=== PATIENT | male | born 1945 | race Caucasian/White ===

== ENCOUNTER 2019-03-16 18:16 | Emergency (ER) | payer OTHER ==
[2019-03-16 18:31] VITALS: BMI 29.1
--- NOTE | 2019-03-16 19:46 | PDOC ---
History of Present Illness - General Chief Complaint: Injury Stated Complaint: FALL Time Seen by Provider: 03/16/19 18:43 History Source: Patient - History of Present Illness Initial Comments: Mr. Baig is a 73 year old man with a pmhx of asthma, HTN, HLD, and DM who presents to the ED complaining of throat pain for the past day. The patient reports that he awoke yesterday morning around 8am with throat pain, he states it has gotten worse over the day and nothing improves it. He states that he is having trouble eating and swallowing because it hurts so much. He has never experienced anything like this before. He also states that yesterday afternoon he was trying to take a seat in a chair in his home but he missed and instead fell on his backside, bracing his fall with his hands. He denies any LOC, dizziness, pain, bruising or head trauma from the fall and states the fall is not what brought him to the hospital. On ROS the pt denies fevers, chills, SOB, CP, abdominal pain, numbness or tingling in his hands or feet, bowel or bladder incontinence, dysuria, n/v/d/c. The pt endorses decreased appetite and throat pain. 03/16/19 19:33 03/16/19 19:56 Past History - Past Medical History Allergies/Adverse Reactions: Allergies Allergy/AdvReac Type Severity Reaction Status Date / Time No Known Allergies Allergy Verified 03/16/19 18:19 Asthma: Yes COPD: Yes Dementia: Yes Diabetes: Yes HTN: Yes Hypercholesterolemia: Yes - Psycho Social/Smoking Cessation Hx Smoking History: Never smoked Review of Systems - Review of Systems Able to Perform ROS?: Yes Constitutional: Yes: Loss of Appetite (due to pain with swallowing), Malaise. No: Chills, Diaphoresis, Fever HEENTM: Yes: Throat Pain, Difficulty Swallowing. No: Recent change in vision, Ear Pain Respiratory: No: Shortness of Breath, Productive cough Cardiac (ROS): No: Chest Pain, Edema, Irregular Heart Rate, Palpitations, Syncope ABD/GI: Yes: Difficulty Swallowing, Poor Appetite. No: Abdominal Distended, Blood Streaked Bowels, Constipated, Diarrhea : No: Burning, Dysuria, Frequency, Hematuria, Pain Musculoskeletal: Yes: Neck Pain Integumentary: No: Bruising, Change in Color, Lumps, Pruritus, Rash Neurological: No: Headache, Numbness, Paresthesia Endocrine: No: Flushing Hematologic/Lymphatic: No: Blood Clots, Easy Bleeding, Easy Bruising *Physical Exam - Vital Signs Last Vital Signs Temp Pulse Resp BP Pulse Ox 98.5 F 88 16 126/63 99 03/16/19 18:25 03/16/19 18:25 03/16/19 18:25 03/16/19 18:25 03/16/19 18:25 - Physical Exam General Appearance: Yes: Appropriately Dressed, Mild Distress, Obese HEENT: positive: EOMI, BRITTANIE, Pharyngeal Erythema, Tonsillar Erythema, Other ( leukoplakia of tongue, 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 negative: Tonsillar Exudate Neck: positive: Trachea midline, Supple, Tender lateral, Tender midline. negative: Lymphadenopathy (R), Lymphadenopathy (L), Thyromegaly Respiratory/Chest: positive: Crackles (crackles in the the R upper and lower lung mckenna, crackles @ the LL base, L upper lung clear to asculation. ) Cardiovascular: positive: Regular Rhythm, Regular Rate, S1, S2. negative: Murmur Gastrointestinal/Abdominal: positive: Normal Bowel Sounds, Soft, Protuberent. 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 NML intact, Fully Oriented, Alert, Normal Mood/ Affect, Motor Strength 5/5, Numbness (sensation of RLE is intact but feels more "numb" compared to L per the pt) ED Treatment Course - LABORATORY CBC & Chemistry Diagram: 03/16/19 20:18 03/16/19 20:18 - RADIOLOGY Radiology Studies Ordered: Category Date Time Status CHEST PA & LAT [RAD] Stat Radiology 03/16/19 19:29 Ordered NECK SOFT TISSUE [RAD] Stat Radiology 03/16/19 19:29 Ordered PELVIS [RAD] Stat Radiology 03/16/19 19:29 Ordered SPINE-LUMBAR SACRAL [RAD] Stat Radiology 03/16/19 19:29 Ordered Medical Decision Making - Medical Decision Making 03/16/19 21:12 Mr. Baig is a 73 year old man with a pmhx of asthma, HTN, HLD, and DM who presents to the ED complaining of throat pain for the past day. On physical exam his vitals were stable but he was found to have leukoplakia with throat tenderness to palpation and erythema suspicious for infectious process. The pt also reported a fall on his right side and now has TTP of the right him and reports his right leg has decreased sensation compared to the left. Will also work up for mechanical injury. Finally, on physical exam the pt had crackles in the posterior lung mckenna with coarse breath sounds, sounds somewhat vol overloaded despite no peripheral edema. Will f/u BNP and Trop. 1. Throat pain - CBC - CMP - strep swab - CXR - u/s of neck+ soft tissue to r/o retropharyngeal abscess 2. s/p mechanical fall - lumbosacral/ pelvic xray to r/o fx 3. Posterior crackles - CXR to look for focal consolidations, atelectasis, or evidence of vol overload - Cardiac profile - BNP
[2019-03-16 20:26] LABS: BASO % 0.6 % (0-2.0); EOS % 0.4 % (0-4.5); HEMATOCRIT 43.4 % (35.4-49); HEMOGLOBIN 14.3 GM/dL (11.7-16.9); LYMPH % 6.8 % (8-40); MCH 29.1 pg (25.7-33.7); MCHC 33.1 g/dl (32.0-35.9); MEAN PLT VOLUME 7.1 fl (7.5-11.1); MONO % 7.9 % (3.8-10.2); NEUT % 84.3 % (42.8-82.8); PLATELET COUNT 230 K/MM3 (134-434); RBC 4.93 M/mm3 (4.00-5.60); RDW 13.9 % (11.9-15.9)
--- NOTE | 2019-03-16 20:34 | PDOC ---
Documentation entered by Madison Shankar SCRIBE, acting as scribe for Laurie North DO. Laurie North, : This documentation has been prepared by the Vonnie perez Xhesika, SCRIBE, under my direction and personally reviewed by me in its entirety. I confirm that the documentation accurately reflects all work, treatment, procedures, and medical decision making performed by me. Attending Attestation - Resident Resident Name: Emerita West - ED Attending Attestation I have performed the following: I have examined & evaluated the patient, The case was reviewed & discussed with the resident, I agree w/resident's findings & plan, Exceptions are as noted - HPI HPI: 03/16/19 19:36 The patient is a 73 year old male with a significant PMH of asthma, HLD, HTN, DM who presents to the emergency department for throat pain since yesterday. Pt is poor historian, but notes his throat pain has not allowed him to eat or swallow his food. Pt reports he had a mechanical fall last night when he went to sit and missed his chair, landing on his backside. Pt denies hitting head or LOC. The patient denies chest pain, shortness of breath, headache. Denies fever , chills, cough, nausea, vomiting, diarrhea and constipation. Denies dysuria, frequency, urgency and hematuria. Allergies: NKDA - Physicial Exam PE: 03/16/19 20:13 GENERAL: Awake, alert, and fully oriented, in no acute distress HEAD: No signs of trauma EYES: PERRLA, EOMI, sclera anicteric, conjunctiva clear ENT: + Leukoplakia on toungue. + hydro palatine tonsil. +upper and lower dentures. hearing grossly normal, nares patent. Moist mucosa. No stridor. NECK: Normal ROM, supple, no lymphadenopathy, JVD, or masses LUNGS: + coarse rail breath sounds upper and lower. No wheezes HEART: Regular rate and rhythm, normal S1 and S2, no murmurs, rubs or gallops ABDOMEN: Soft, nontender, normoactive bowel sounds. No guarding, no rebound. No masses EXTREMITIES:+ Right SI joint tenderness. No step offs or deformities. no edema. No clubbing or cyanosis. No cords, erythema NEUROLOGICAL: Cranial nerves II through XII grossly intact. Normal speech SKIN: Warm, Dry, normal turgor, no rashes or lesions noted. - Medical Decision Making 03/16/19 20:33 I, Dr. Laurie North, DO, attest that this document has been prepared under my direction and personally reviewed by me in its entirety. I further attest, that it accurately reflects all work, treatment, procedures and medical decision -making performed by me. a/p: 73yo male with a fall landing on his buttock, R low back pain, also with throat pain -hypertrophied beefy red tonsils -rales/coarse bs b/l -no edema in legs -will send labs, ekg, cxr, soft tissue neck to eval for deep space infection -will monitor and reassess -xray back -neuro intact, no head injury -no c/t/l spine ttp, stepoffs or deformities 03/16/19 22:09 bnp 200 trop neg ck elevated wbc 14 pending imaging 03/16/19 23:55 cxr clear pelvis without acute fx, spine without acute findings 03/17/19 00:45 pt is strep + will add decadron and abx 03/17/19 01:39 pt signed out to the night team pending ct imaging of the neck
[2019-03-16 21:06] LABS: ALBUMIN 3.9 g/dl (3.4-5.0); BLOOD UREA NITROGEN 9.4 mg/dL (7-18); CALCIUM 9.5 mg/dL (8.5-10.1); CREATININE 1.1 mg/dL (0.55-1.3)
[2019-03-16 21:40] LABS: N-TERMINAL BNP 216.4 pg/ml (5-450)
--- NOTE | 2019-03-16 22:10 | PDOC ---
*Physical Exam - Vital Signs Last Vital Signs Temp Pulse Resp BP Pulse Ox 98.5 F 88 16 126/63 99 03/16/19 18:25 03/16/19 18:25 03/16/19 18:25 03/16/19 18:25 03/16/19 18:25 <Torin Severino - Last Filed: 03/17/19 03:13> - Vital Signs Last Vital Signs Temp Pulse Resp BP Pulse Ox 98.8 F 76 20 123/70 94 L 03/17/19 08:40 03/17/19 08:40 03/17/19 08:40 03/17/19 08:40 03/17/19 01:17 <Jayson Cruz - Last Filed: 03/17/19 08:58> ED Treatment Course - LABORATORY CBC & Chemistry Diagram: 03/16/19 20:18 03/16/19 20:18 - ADDITIONAL ORDERS Additional order review: Laboratory Results 03/16/19 03/16/19 20:18 20:18 Sodium 135 L Potassium 4.0 Chloride 99 Carbon Dioxide 29 Anion Gap 6 L BUN 9.4 Creatinine 1.1 Est GFR (CKD-EPI)AfAm 75.71 Est GFR (CKD-EPI)NonAf 65.32 Random Glucose 142 H Calcium 9.5 Total Bilirubin 1.0 AST 21 ALT 19 Alkaline Phosphatase 75 Creatine Kinase 771 H Creatine Kinase Index 0.7 CK-MB (CK-2) 5.7 H Troponin I < 0.02 B-Natriuretic Peptide 216.4 Total Protein 8.0 Albumin 3.9 03/16/19 20:18 RBC 4.93 MCV 88.0 MCHC 33.1 RDW 13.9 MPV 7.1 L D Neutrophils % 84.3 H Lymphocytes % 6.8 L Monocytes % 7.9 Eosinophils % 0.4 Basophils % 0.6 <Torin Severino - Last Filed: 03/17/19 03:13> - LABORATORY CBC & Chemistry Diagram: 03/16/19 20:18 03/16/19 20:18 - ADDITIONAL ORDERS Additional order review: Laboratory Results 03/16/19 03/16/19 20:18 20:18 Sodium 135 L Potassium 4.0 Chloride 99 Carbon Dioxide 29 Anion Gap 6 L BUN 9.4 Creatinine 1.1 Est GFR (CKD-EPI)AfAm 75.71 Est GFR (CKD-EPI)NonAf 65.32 Random Glucose 142 H Calcium 9.5 Total Bilirubin 1.0 AST 21 ALT 19 Alkaline Phosphatase 75 Creatine Kinase 771 H Creatine Kinase Index 0.7 CK-MB (CK-2) 5.7 H Troponin I < 0.02 B-Natriuretic Peptide 216.4 Total Protein 8.0 Albumin 3.9 03/16/19 20:18 RBC 4.93 MCV 88.0 MCHC 33.1 RDW 13.9 MPV 7.1 L D Neutrophils % 84.3 H Lymphocytes % 6.8 L Monocytes % 7.9 Eosinophils % 0.4 Basophils % 0.6 - Medications Given in the ED: ED Medications Discontinued Medications Generic Name Dose Route Start Last Admin Trade Name Freq PRN Reason Stop Dose Admin Amoxicillin/Clavulanate Potassium 1 tab 03/17/19 00:45 03/17/19 01:17 Augmentin - 875mg Tablet PO 03/17/19 00:46 1 tab ONCE ONE Administration Dexamethasone Sodium Phosphate 10 mg 03/17/19 00:45 03/17/19 01:17 Decadron Injection - IVPUSH 03/17/19 00:46 10 mg ONCE ONE Administration <Jayson Cruz - Last Filed: 03/17/19 08:58> Medical Decision Making - Medical Decision Making 03/16/19 22:10 signed out from noon team fall w/o LOC / head strike throat pain and swelling labs reviewed - f/u CXR - f/u neck-soft tissue CT - f/u LS spine XR Allergies Allergy/AdvReac Type Severity Reaction Status Date / Time No Known Allergies Allergy Verified 03/16/19 18:19 Vital Signs Temp Pulse Resp BP Pulse Ox 98.5 F 88 16 126/63 99 03/16/19 18:25 03/16/19 18:25 03/16/19 18:25 03/16/19 18:25 03/16/19 18:25 03/16/19 23:55 no fractures or acute pathology seen in pelvic, chest, or spine XR per ED team interpretation - f/u CT 03/17/19 02:50 Strep pos - abx CT IOC IMPRESSION: Pt has NONTENDER mastoids b/l ED team discussed mass with patient w/ faroese interpretation; pt understands he needs urgent ENT follow up DC home w/ PCP and ENT f/u; sent ABX <Torin Severino - Last Filed: 03/17/19 03:13> Discharge <Torin Severino - Last Filed: 03/17/19 03:13> - Discharge Information Problems reviewed: Yes - Admission No <Jayson Cruz - Last Filed: 03/17/19 08:58> - Discharge Information Clinical Impression/Diagnosis: Strep pharyngitis Condition: Fair Disposition: HOME - Additional Discharge Information Prescriptions: Amoxicillin/Potassium Clav [Augmentin 875-125 Tablet] 1 each PO BID #14 tablet MDD 2 tab - Follow up/Referral Referrals: Bimal Guzman MD [Staff Physician] - - Patient Discharge Instructions Patient Printed Discharge Instructions: DI for Strep Throat Additional Instructions: Please return to the emergency department with any new or worsening symptoms or concerns. Please follow up with your primary care physician within 72 hours. Also please follow up with ear, nose, throat doctor within 48 hours for 3.2 x 2.0 cm irregular soft tissue mass in the right oropharynx, suspicious for neoplasm. Continue to take Augmentin as prescribed.
[2019-03-17] MEDS ORDERED: DEXAMETHASONE SOD PHOSPHATE 10 MG/1 ML VIAL IVPUSH ONE (00:45)
[2019-03-17] MEDS ORDERED: AMOX TR/POT CLAV 875MG/125MG TABLETS (FP) PO ONE (00:45)
[2019-03-17] MEDS ORDERED: DEXAMETHASONE SOD PHOSPHATE 10 MG/1 ML VIAL ONE (01:05)
[2019-03-17] MEDS ORDERED: AMOX TR/POT CLAV 875MG/125MG TABLETS (FP) ONE (01:05)
[2019-03-17 08:55] VITALS: BP 123/70; PULSE 76; TEMP 98.8
== END 2019-03-17 09:00 | disposition home or self-care (01) ==
LOC: JER 18:16
PROC: 3E033GC Introduction of Other Therapeutic Substance into Peripheral Vein, Percutaneous Approach (ICD-10-PCS; principal; 2019-03-16)
DX: J02.0 Streptococcal pharyngitis (principal); J45.909 Unspecified asthma, uncomplicated; I10 Essential (primary) hypertension; E78.5 Hyperlipidemia, unspecified; E11.9 Type 2 diabetes mellitus without complications; E78.00 Pure hypercholesterolemia, unspecified
CPT/HCPCS: 36415; 70491-TC; 71045-TC-FY; 72100-TC-FY; 72170-TC-FY; 80053; 82550; 82553; 83880; 84484; 85025; 87880; 99283-25; J1100

== ENCOUNTER 2022-03-22 18:34 | Inpatient (IN) | payer OTHER ==
[2022-03-22] MEDS ORDERED: ALBUTEROL SO4 2.5/IPRATROPIUM 0.5 INH SOL 3 ML VIAL.NEB. NEB ONE ×2 (19:50→21:09)
[2022-03-22] MEDS ORDERED: ACETAMINOPHEN 1000 MG/100 ML BAG IVPB ONE (19:50)
[2022-03-22] MEDS ORDERED: ACETAMINOPHEN INJECTION 100 ML IVPB ONE (20:26)
[2022-03-22 20:32] LABS: BASO % 0.5 % (0-2.0); EOS % 3.6 % (0-4.5); HEMATOCRIT 37.3 % (35.4-49); HEMOGLOBIN 12.3 GM/dL (11.7-16.9); LYMPH % 8.1 % (8-40); MCH 29.2 pg (25.7-33.7); MCHC 33.1 g/dl (32.0-35.9); MEAN CELL VOLUME 88.1 fl (80-96); MEAN PLT VOLUME 6.9 fl (7.5-11.1); NEUT % 72.8 % (42.8-82.8); PLATELET COUNT 199 10^3/uL (134-434); RBC 4.23 M/mm3 (4.00-5.60); RDW 14.8 % (11.9-15.9); WHITE BLOOD COUNT 8.7 K/mm3 (4.0-10.0)
[2022-03-22 20:38] LABS: INR 0.99 (0.83-1.09); PROTHROMBIN TIME (PATIENT) 11.4 SEC (9.7-13.0); VENOUS BASE EXCESS 2.9 mmol/L (-2-2); VENOUS PCO2 56.4 mmHg (38-52); VENOUS PH 7.343 (7.310-7.410)
[2022-03-22 20:40] LABS: ACTIVATED PTT 30.5 SECONDS (25.2-36.5)
[2022-03-22 20:47] LABS: CALCIUM 8.9 mg/dL (8.5-10.1)
[2022-03-22 20:48] LABS: ALBUMIN 3.7 g/dl (3.4-5.0); BLOOD UREA NITROGEN 16.5 mg/dL (7-18)
[2022-03-22 20:51] LABS: CREATININE 1.1 mg/dL (0.55-1.3)
[2022-03-22 20:52] LABS: TOT PROT 7.3 g/dl (6.4-8.2)
[2022-03-22 20:53] LABS: BILIRUBIN,TOTAL 0.4 mg/dL (0.2-1)
[2022-03-22 20:56] LABS: N-TERMINAL BNP 311.3 pg/ml (5-450)
[2022-03-22] MEDS ORDERED: CEFTRIAXONE 1,000 MG in DEXTROSE 5%-WATER - 50 ML IVPB ONE (21:24)
[2022-03-22] MEDS ORDERED: AZITHROMYCIN IVPB 500 MG in DEXTROSE 5%-WATER - 250 ML IVPB ONE (21:24)
[2022-03-22] MEDS ORDERED: DEXAMETHASONE SOD PHOSPHATE 20 MG/5 ML VIAL IVPB ONE (21:24)
[2022-03-22] MEDS ORDERED: CEFTRIAXONE 1 GM/50 ML BAG ONE (21:41)
[2022-03-22] MEDS ORDERED: DEXAMETHASONE SOD PHOSPHATE 10 MG/1 ML VIAL ONE (21:41)
[2022-03-22] MEDS ORDERED: AZITHROMYCIN IVPB 500 MG/250 ML BAG IVPB ONE (21:41)
[2022-03-22] MEDS ORDERED: morphine CARPU-JECT 2 MG/1 ML DISP.SYRIN IVPUSH ONE (23:24)
[2022-03-22] MEDS ORDERED: REMDESIVIR 200 MG in SODIUM CHLORIDE 250 ML IVPB ONE (23:30)
[2022-03-23 02:10] LABS: PH,URINE 6.5 (5.0-8.0); URINE APPEARANCE CLEAR; URINE BILIRUBIN NEGATIVE (NEGATIVE); URINE COLOR YELLOW; URINE GLUCOSE (UA) NEGATIVE (NEGATIVE); URINE KETONE NEGATIVE (NEGATIVE); URINE LEUK ESTERASE NEGATIVE (NEGATIVE); URINE NITRITE NEGATIVE (NEGATIVE); URINE PROTEIN NEGATIVE (NEGATIVE); URINE UROBILINOGEN 0.2 mg/dL (0.2-1.0)
[2022-03-23] MEDS ORDERED: methylPREDNISolone NA SUCC 40 MG/1 ML VIAL IVPUSH SCH (06:00)
[2022-03-23] MEDS: INSULIN SLIDING SCALE (NOVOLOG) 1 VIAL SQ SCH ×4 (08:12→23:47)
[2022-03-23] MEDS ORDERED: amLODIPine BESYLATE 10 MG TABLET (FP) ONE (09:52)
[2022-03-23] MEDS ORDERED: ASPIRIN 81 MG CHEWABLE TABLETS ONE (09:52)
[2022-03-23] MEDS ORDERED: DEXAMETHASONE SOD PHOSPHATE 10 MG/1 ML VIAL ONE (09:52)
[2022-03-23] MEDS ORDERED: LISINOPRIL 5 MG TABLET ONE (09:52)
[2022-03-23] MEDS ORDERED: PANTOPRAZOLE 20 MG TABLET PO ONE (09:52)
[2022-03-23] MEDS ORDERED: GABAPENTIN 300 MG CAPSULE ONE (09:53)
[2022-03-23] MEDS ORDERED: ESCITALOPRAM OXALATE 10 MG TABLET ONE (09:53)
[2022-03-23] MEDS ORDERED: ENOXAPARIN NA (PORCINE) 40 MG/0.4 ML DISP.SYRIN SQ ONE (09:53)
[2022-03-23] MEDS: ESCITALOPRAM OXALATE 10 MG TABLET PO SCH (10:01)
[2022-03-23] MEDS: ENOXAPARIN NA (PORCINE) 40 MG/0.4 ML DISP.SYRIN SQ SCH (10:01)
[2022-03-23] MEDS: ALBUTEROL SO4 2.5/IPRATROPIUM 0.5 INH SOL 3 ML VIAL.NEB. NEB SCH ×3 (10:01→23:29)
[2022-03-23] MEDS: ASPIRIN COATED 81 MG TABLET.EC PO SCH (10:01)
[2022-03-23] MEDS: DEXAMETHASONE SOD PHOSPHATE 10 MG/1 ML VIAL IVPB SCH (10:01)
[2022-03-23] MEDS: BUDESONIDE/FORMETEROL FUMARATE 80/4.5 mcg INHALER IH SCH (10:02)
[2022-03-23] MEDS: LISINOPRIL 5 MG TABLET PO SCH (10:02)
[2022-03-23] MEDS: PANTOPRAZOLE 20 MG TABLET PO SCH (10:02)
[2022-03-23] MEDS: GABAPENTIN 300 MG CAPSULE PO SCH (10:02)
[2022-03-23] MEDS: amLODIPine BESYLATE 10 MG TABLET (FP) PO SCH (10:02)
[2022-03-23 15:05] LABS: ARTERIAL BLD GAS O2 SATURATION 98.6 % (95-98); ARTERIAL BLOOD GAS BASE EXCESS 3.3 mmol/L (-2-2); ARTERIAL BLOOD GAS PO2 131.2 mmHg (80-100); ARTERIAL BLOOD GAS pH 7.388 (7.350-7.450)
[2022-03-23 15:08] LABS: ALLENS TEST POSITIVE
[2022-03-23 15:09] LABS: VENT MODE S/T; VENT RATE 14
[2022-03-23] MEDS ORDERED: ATORVASTATIN CA 20 MG TABLET (FP) ONE (23:31)
[2022-03-23] MEDS ORDERED: ALBUTEROL SO4 2.5/IPRATROPIUM 0.5 INH SOL 3 ML VIAL.NEB. NEB ONE (23:31)
[2022-03-23] MEDS ORDERED: MONTELUKAST NA 10 MG TABLET ONE (23:31)
[2022-03-23] MEDS: ATORVASTATIN CA 20 MG TABLET (FP) PO SCH (23:47)
[2022-03-23] MEDS: MONTELUKAST NA 10 MG TABLET PO SCH (23:47)
[2022-03-24] MEDS ORDERED: ALBUTEROL SO4 2.5/IPRATROPIUM 0.5 INH SOL 3 ML VIAL.NEB. NEB ONE ×5 (00:10→21:10)
[2022-03-24] MEDS: BUDESONIDE/FORMETEROL FUMARATE 80/4.5 mcg INHALER IH SCH ×3 (00:15→21:08)
[2022-03-24] MEDS: ALBUTEROL SO4 2.5/IPRATROPIUM 0.5 INH SOL 3 ML VIAL.NEB. NEB SCH ×5 (00:15→21:08)
[2022-03-24] MEDS: REMDESIVIR 100 MG in SODIUM CHLORIDE 250 ML IVPB SCH (00:15)
[2022-03-24] MEDS: INSULIN SLIDING SCALE (NOVOLOG) 1 VIAL SQ SCH ×4 (06:16→21:16)
[2022-03-24] MEDS: PANTOPRAZOLE 20 MG TABLET PO SCH (10:30)
[2022-03-24] MEDS: LISINOPRIL 5 MG TABLET PO SCH (10:30)
[2022-03-24] MEDS: ENOXAPARIN NA (PORCINE) 40 MG/0.4 ML DISP.SYRIN SQ SCH (10:30)
[2022-03-24] MEDS: amLODIPine BESYLATE 10 MG TABLET (FP) PO SCH (10:30)
[2022-03-24] MEDS: DEXAMETHASONE SOD PHOSPHATE 10 MG/1 ML VIAL IVPB SCH (10:45)
[2022-03-24] MEDS: ESCITALOPRAM OXALATE 10 MG TABLET PO SCH (10:45)
[2022-03-24] MEDS: ASPIRIN COATED 81 MG TABLET.EC PO SCH (10:45)
[2022-03-24] MEDS ORDERED: ASPIRIN COATED 81 MG TABLET.EC ONE (10:48)
[2022-03-24] MEDS ORDERED: amLODIPine BESYLATE 10 MG TABLET (FP) ONE (10:48)
[2022-03-24] MEDS ORDERED: LISINOPRIL 5 MG TABLET ONE (10:48)
[2022-03-24] MEDS ORDERED: PANTOPRAZOLE 20 MG TABLET PO ONE (10:48)
[2022-03-24] MEDS ORDERED: DEXAMETHASONE SOD PHOSPHATE 10 MG/1 ML VIAL ONE (10:48)
[2022-03-24] MEDS ORDERED: GABAPENTIN 300 MG CAPSULE ONE (10:49)
[2022-03-24] MEDS ORDERED: ENOXAPARIN NA (PORCINE) 40 MG/0.4 ML DISP.SYRIN SQ ONE (10:49)
[2022-03-24] MEDS ORDERED: ESCITALOPRAM OXALATE 10 MG TABLET ONE (10:57)
[2022-03-24] MEDS: GABAPENTIN 300 MG CAPSULE PO SCH (11:40)
[2022-03-24] MEDS ORDERED: ATORVASTATIN CA 20 MG TABLET (FP) ONE (21:10)
[2022-03-24] MEDS ORDERED: MONTELUKAST NA 10 MG TABLET ONE (21:10)
[2022-03-24] MEDS: MONTELUKAST NA 10 MG TABLET PO SCH (21:17)
[2022-03-24] MEDS: ATORVASTATIN CA 20 MG TABLET (FP) PO SCH (21:17)
[2022-03-25 03:59] VITALS: BMI 33.0
[2022-03-25] MEDS: REMDESIVIR 100 MG in SODIUM CHLORIDE 250 ML IVPB SCH ×2 (04:57→22:32)
[2022-03-25] MEDS: INSULIN SLIDING SCALE (NOVOLOG) 1 VIAL SQ SCH ×4 (06:51→22:31)
[2022-03-25] MEDS: ALBUTEROL SO4 2.5/IPRATROPIUM 0.5 INH SOL 3 ML VIAL.NEB. NEB SCH ×4 (08:23→20:23)
[2022-03-25] MEDS: DEXAMETHASONE SOD PHOSPHATE 10 MG/1 ML VIAL IVPB SCH (09:48)
[2022-03-25] MEDS: ESCITALOPRAM OXALATE 10 MG TABLET PO SCH (09:49)
[2022-03-25] MEDS: GABAPENTIN 300 MG CAPSULE PO SCH (09:49)
[2022-03-25] MEDS: amLODIPine BESYLATE 10 MG TABLET (FP) PO SCH (09:49)
[2022-03-25] MEDS: BUDESONIDE/FORMETEROL FUMARATE 80/4.5 mcg INHALER IH SCH ×2 (09:50→21:42)
[2022-03-25] MEDS: PANTOPRAZOLE 20 MG TABLET PO SCH (09:50)
[2022-03-25] MEDS: ASPIRIN COATED 81 MG TABLET.EC PO SCH (09:50)
[2022-03-25] MEDS: LISINOPRIL 5 MG TABLET PO SCH (09:50)
[2022-03-25] MEDS: ENOXAPARIN NA (PORCINE) 40 MG/0.4 ML DISP.SYRIN SQ SCH (09:50)
[2022-03-25 11:55] LABS: BASO % 0.3 % (0-2.0); EOS % 0.2 % (0-4.5); HEMATOCRIT 34.8 % (35.4-49); HEMOGLOBIN 11.6 GM/dL (11.7-16.9); LYMPH % 13.3 % (8-40); MCH 29.5 pg (25.7-33.7); MCHC 33.4 g/dl (32.0-35.9); MEAN CELL VOLUME 88.5 fl (80-96); NEUT % 76.2 % (42.8-82.8); PLATELET COUNT 218 10^3/uL (134-434); RBC 3.94 M/mm3 (4.00-5.60); RDW 15.5 % (11.9-15.9); WHITE BLOOD COUNT 8.9 K/mm3 (4.0-10.0)
[2022-03-25 12:25] LABS: CALCIUM 8.8 mg/dL (8.5-10.1)
[2022-03-25 12:26] LABS: ALBUMIN 3.4 g/dl (3.4-5.0); BLOOD UREA NITROGEN 20.7 mg/dL (7-18); MAGNESIUM 1.9 mg/dL (1.8-2.4)
[2022-03-25 12:28] LABS: CREATININE 0.9 mg/dL (0.55-1.3)
[2022-03-25 12:30] LABS: BILIRUBIN,TOTAL 0.4 mg/dL (0.2-1); TOT PROT 6.8 g/dl (6.4-8.2)
[2022-03-25 21:39] VITALS: RESP 20
[2022-03-25] MEDS: MONTELUKAST NA 10 MG TABLET PO SCH (21:42)
[2022-03-25] MEDS: ATORVASTATIN CA 20 MG TABLET (FP) PO SCH (21:42)
[2022-03-26 06:13] VITALS: BP 137/59; TEMP 98.1
[2022-03-26] MEDS: INSULIN SLIDING SCALE (NOVOLOG) 1 VIAL SQ SCH (06:58)
[2022-03-26 07:59] VITALS: PULSE 62
[2022-03-26] MEDS: ALBUTEROL SO4 2.5/IPRATROPIUM 0.5 INH SOL 3 ML VIAL.NEB. NEB SCH (07:59)
[2022-03-26] MEDS ORDERED: DEXAMETHASONE 4 MG TABLET (FP) PO SCH (10:00)
[2022-03-26] MEDS: PANTOPRAZOLE 20 MG TABLET PO SCH (10:24)
[2022-03-26] MEDS: GABAPENTIN 300 MG CAPSULE PO SCH (10:24)
[2022-03-26] MEDS: LISINOPRIL 5 MG TABLET PO SCH (10:24)
[2022-03-26] MEDS: amLODIPine BESYLATE 10 MG TABLET (FP) PO SCH (10:24)
[2022-03-26] MEDS: ESCITALOPRAM OXALATE 10 MG TABLET PO SCH (10:24)
[2022-03-26] MEDS: ASPIRIN COATED 81 MG TABLET.EC PO SCH (10:24)
[2022-03-26] MEDS: ENOXAPARIN NA (PORCINE) 40 MG/0.4 ML DISP.SYRIN SQ SCH (10:24)
[2022-03-26] MEDS: BUDESONIDE/FORMETEROL FUMARATE 80/4.5 mcg INHALER IH SCH (10:25)
== END 2022-03-26 12:06 | disposition home health service (06) | DRG 177 ==
LOC: JER 18:34 → JERBED 21:24 → J8W 03-25 03:10
PROVIDERS: ADMIT Internal Medicine; ATTEND Nurse Practitioner Acute Care
PROC: XW033E5 Introduction of Remdesivir Anti-infective into Peripheral Vein, Percutaneous Approach, New Technology Group 5 (ICD-10-PCS; principal; 2022-03-22)
DX: U07.1 COVID-19 (principal); J15.9 Unspecified bacterial pneumonia; J96.01 Acute respiratory failure with hypoxia; J96.02 Acute respiratory failure with hypercapnia; J44.1 Chronic obstructive pulmonary disease with (acute) exacerbation; I10 Essential (primary) hypertension; E78.5 Hyperlipidemia, unspecified; F03.90 Unspecified dementia, unspecified severity, without behavioral disturbance, psychotic disturbance, mood disturbance, and anxiety; Z99.81 Dependence on supplemental oxygen; E11.65 Type 2 diabetes mellitus with hyperglycemia; F31.9 Bipolar disorder, unspecified
CPT/HCPCS: 0241U-QW; 36415; 36600; 71045-TC-FY; 80053; 81003; 82550; 82553; 82728; 82803; 82962; 83605; 83615; 83735; 83880; 84484; 85025; 85379; 85610; 85730; 86140; 86850; 86900; 86901; 87040; 87086; 93005; 93010; 94660; 99291; C9399; J1100

== ENCOUNTER 2022-09-21 16:21 | Inpatient (IN) | payer OTHER ==
[2022-09-21] MEDS ORDERED: ALBUTEROL SO4 2.5/IPRATROPIUM 0.5 INH SOL 3 ML VIAL.NEB. NEB ONE ×2 (16:36→16:39)
[2022-09-21] MEDS ORDERED: DEXAMETHASONE SOD PHOSPHATE 10 MG/1 ML VIAL IVPUSH ONE (16:39)
[2022-09-21] MEDS ORDERED: DEXAMETHASONE SOD PHOSPHATE 10 MG/1 ML VIAL ONE (16:43)
[2022-09-21 17:03] LABS: VENOUS BASE EXCESS 4.9 mmol/L (-2-2); VENOUS O2 SATURATION 75.7 % (70-80); VENOUS PCO2 56.2 mmHg (38-52); VENOUS PH 7.369 (7.310-7.410)
[2022-09-21 17:04] LABS: BASO % 0.5 % (0-2.0); EOS % 3.4 % (0-4.5); HEMATOCRIT 36.6 % (35.4-49); HEMOGLOBIN 12.4 GM/dL (11.7-16.9); LYMPH % 21.1 % (8-40); MCH 30.2 pg (25.7-33.7); MCHC 33.8 g/dl (32.0-35.9); MEAN CELL VOLUME 89.2 fl (80-96); MEAN PLT VOLUME 7.1 fl (7.5-11.1); MONO % 12.6 % (3.8-10.2); NEUT % 62.4 % (42.8-82.8); PLATELET COUNT 209 10^3/uL (134-434); RDW 14.1 % (11.9-15.9); WHITE BLOOD COUNT 7.1 K/mm3 (4.0-10.0)
[2022-09-21 17:18] LABS: POTASSIUM 5.3 mmol/L (3.5-5.1)
[2022-09-21 17:20] LABS: CALCIUM 9.4 mg/dL (8.5-10.1)
[2022-09-21 17:21] LABS: ALBUMIN 3.6 g/dl (3.4-5.0); BLOOD UREA NITROGEN 15.9 mg/dL (7-18)
[2022-09-21 17:26] LABS: BILIRUBIN,TOTAL 0.6 mg/dL (0.2-1); TOT PROT 7.2 g/dl (6.4-8.2)
[2022-09-21] MEDS ORDERED: ALBUTEROL SO4 0.083% IH SOL 2.5 MG/3 ML VIAL.NEB. NEB ONE (17:34)
[2022-09-21] MEDS ORDERED: AZITHROMYCIN 250 MG TABLET PO ONE (17:35)
[2022-09-21] MEDS ORDERED: ALBUTEROL SO4 0.5 % INH SOLN 2.5 MG/0.5 ML VIAL.NEB. NEB ONE (17:35)
[2022-09-21] MEDS ORDERED: AZITHROMYCIN 500 MG TABLET ONE (17:39)
[2022-09-21] MEDS: CEFTRIAXONE 1,000 MG in DEXTROSE 5%-WATER - 50 ML IVPB ONE ×2 (18:40→20:07)
[2022-09-21] MEDS: SODIUM CHLORIDE 0.9% 500 ML INFUS.BAG IV ONE ×2 (18:41→20:26)
[2022-09-21] MEDS ORDERED: CEFTRIAXONE 1 GM/50 ML BAG ONE (18:43)
[2022-09-21] MEDS ORDERED: HALOPERIDOL 2 MG TABLET PO ONE (19:49)
[2022-09-21] MEDS ORDERED: HALOPERIDOL 1 MG TABLET PO ONE ×2 (20:15→23:15)
[2022-09-21 21:01] LABS: EPI CELLS 7 /uL (0-25.1); HYALINE CASTS 0 /uL (0-3.1); PH,URINE 7.5 (5.0-8.0); URINE APPEARANCE CLEAR; URINE BACTERIA 1499 /uL (0-1359); URINE BILIRUBIN NEGATIVE (NEGATIVE); URINE COLOR YELLOW; URINE GLUCOSE (UA) NEGATIVE (NEGATIVE); URINE KETONE NEGATIVE (NEGATIVE); URINE LEUK ESTERASE TRACE (NEGATIVE); URINE NITRITE NEGATIVE (NEGATIVE); URINE PROTEIN NEGATIVE (NEGATIVE); URINE RBC 3 /uL (0-23.9); URINE UROBILINOGEN 0.2 mg/dL (0.2-1.0); URINE WBC 3 /uL (0-25.8)
[2022-09-21 21:41] VITALS: BMI 31.0
[2022-09-21] MEDS ORDERED: ALBUTEROL SO4 HFA INHALER IH PRN (21:57)
[2022-09-21] MEDS ORDERED: PERPHENAZINE 4 MG TABLET PO SCH (22:00)
[2022-09-21] MEDS ORDERED: HALOPERIDOL 5 MG TABLET PO SCH (22:00)
[2022-09-21] MEDS ORDERED: DIVALPROEX SODIUM 500 MG TABLET E.C. PO SCH (22:00)
[2022-09-21] MEDS ORDERED: TAMSULOSIN HCL 0.4 MG CAP PO SCH (22:00)
[2022-09-21] MEDS: GABAPENTIN 300 MG CAPSULE PO SCH (22:56)
[2022-09-21] MEDS: ATORVASTATIN CA 20 MG TABLET (FP) PO SCH (22:56)
[2022-09-21] MEDS: DIVALPROEX SODIUM 125 MG TABLET E.C. PO SCH (22:57)
[2022-09-21] MEDS: DIVALPROEX 250 MG, DIVALPROEX 500 MG PO SCH (22:57)
[2022-09-22] MEDS: methylPREDNISolone NA SUCC 40 MG/1 ML VIAL IVPUSH SCH ×4 (02:17→22:03)
[2022-09-22] MEDS: INSULIN SLIDING SCALE (NOVOLOG) 1 VIAL SQ SCH ×4 (06:00→22:16)
[2022-09-22 07:23] LABS: BASO % 0.1 % (0-2.0); HEMATOCRIT 34.6 % (35.4-49); HEMOGLOBIN 12.1 GM/dL (11.7-16.9); LYMPH % 15.5 % (8-40); MCHC 35.1 g/dl (32.0-35.9); MEAN CELL VOLUME 88.4 fl (80-96); MEAN PLT VOLUME 7.8 fl (7.5-11.1); MONO % 2.1 % (3.8-10.2); NEUT % 82.3 % (42.8-82.8); PLATELET COUNT 188 10^3/uL (134-434); RBC 3.91 M/mm3 (4.00-5.60)
[2022-09-22 07:35] LABS: POTASSIUM 4.6 mmol/L (3.5-5.1)
[2022-09-22 07:37] LABS: ALBUMIN 3.5 g/dl (3.4-5.0); CALCIUM 9.3 mg/dL (8.5-10.1)
[2022-09-22 07:38] LABS: BLOOD UREA NITROGEN 16.6 mg/dL (7-18); MAGNESIUM 1.8 mg/dL (1.8-2.4)
[2022-09-22] MEDS: ALBUTEROL SO4 2.5/IPRATROPIUM 0.5 INH SOL 3 ML VIAL.NEB. NEB SCH ×4 (07:39→20:05)
[2022-09-22 07:40] LABS: PHOSPHOROUS 3.4 mg/dL (2.5-4.9)
[2022-09-22 07:41] LABS: CREATININE 0.9 mg/dL (0.55-1.3)
[2022-09-22 07:42] LABS: TOT PROT 7.2 g/dl (6.4-8.2)
[2022-09-22 07:45] LABS: BILIRUBIN,TOTAL 0.4 mg/dL (0.2-1)
[2022-09-22] MEDS: FUROSEMIDE 20 MG TABLET (FP) PO SCH (09:12)
[2022-09-22] MEDS: IRON POLYSACCHARIDES 150 MG CAPSULE PO SCH (09:12)
[2022-09-22] MEDS: ENOXAPARIN NA (PORCINE) 40 MG/0.4 ML DISP.SYRIN SQ SCH (09:13)
[2022-09-22] MEDS: FOLIC ACID 1 MG TABLET (FP) PO SCH (09:13)
[2022-09-22] MEDS: ASPIRIN COATED 81 MG TABLET.EC PO SCH (09:13)
[2022-09-22] MEDS: LISINOPRIL 5 MG TABLET PO SCH (09:13)
[2022-09-22] MEDS: amLODIPine BESYLATE 10 MG TABLET (FP) PO SCH (09:13)
[2022-09-22] MEDS: DIVALPROEX SODIUM 500 MG TABLET E.C. PO SCH (09:14)
[2022-09-22] MEDS ORDERED: PERPHENAZINE 4 MG TABLET PO SCH (10:00)
[2022-09-22] MEDS ORDERED: FLUTICASONE/UMECLIDIN/VILANTER(100-62.5-25 TRELEGY ELLIPTA) INAHLER IH SCH (10:00)
[2022-09-22] MEDS ORDERED: HALOPERIDOL 1 MG TABLET PO SCH (10:00)
[2022-09-22] MEDS ORDERED: AZITHROMYCIN IVPB 500 MG in DEXTROSE 5%-WATER - 250 ML IVPB SCH (11:30)
[2022-09-22] MEDS: CEFTRIAXONE 1 GM in DEXTROSE 5%-WATER - 50 ML IVPB SCH (11:43)
[2022-09-22] MEDS: DOXYCYCLINE INJECTION 100 MG in DEXTROSE 5%-WATER 100 ML IVPB SCH ×2 (11:44→22:03)
[2022-09-22] MEDS: TAMSULOSIN HCL 0.4 MG CAP PO SCH ×2 (11:45→22:03)
[2022-09-22] MEDS: GABAPENTIN 300 MG CAPSULE PO SCH (22:03)
[2022-09-22] MEDS: ATORVASTATIN CA 20 MG TABLET (FP) PO SCH (22:03)
[2022-09-22] MEDS: DIVALPROEX SODIUM 125 MG TABLET E.C. PO SCH (22:04)
[2022-09-22] MEDS: DIVALPROEX 250 MG, DIVALPROEX 500 MG PO SCH (22:04)
[2022-09-22] MEDS: HALOPERIDOL 5 MG TABLET PO SCH (22:04)
[2022-09-23] MEDS: methylPREDNISolone NA SUCC 40 MG/1 ML VIAL IVPUSH SCH (02:01)
[2022-09-23] MEDS: INSULIN SLIDING SCALE (NOVOLOG) 1 VIAL SQ SCH ×4 (06:23→22:30)
[2022-09-23 07:40] LABS: BASO % 0.1 % (0-2.0); HEMATOCRIT 32.1 % (35.4-49); HEMOGLOBIN 11.1 GM/dL (11.7-16.9); LYMPH % 8.5 % (8-40); MCH 30.6 pg (25.7-33.7); MCHC 34.6 g/dl (32.0-35.9); MEAN CELL VOLUME 88.4 fl (80-96); MEAN PLT VOLUME 7.9 fl (7.5-11.1); MONO % 3.4 % (3.8-10.2); PLATELET COUNT 188 10^3/uL (134-434); RBC 3.63 M/mm3 (4.00-5.60); WHITE BLOOD COUNT 13.7 K/mm3 (4.0-10.0)
[2022-09-23] MEDS: ALBUTEROL SO4 2.5/IPRATROPIUM 0.5 INH SOL 3 ML VIAL.NEB. NEB SCH ×4 (07:41→20:05)
[2022-09-23 07:54] LABS: POTASSIUM 4.4 mmol/L (3.5-5.1)
[2022-09-23 07:57] LABS: ALBUMIN 3.4 g/dl (3.4-5.0); BLOOD UREA NITROGEN 23.4 mg/dL (7-18)
[2022-09-23 08:01] LABS: BILIRUBIN,TOTAL 0.4 mg/dL (0.2-1); TOT PROT 6.4 g/dl (6.4-8.2)
[2022-09-23] MEDS: TAMSULOSIN HCL 0.4 MG CAP PO SCH ×2 (08:21→22:31)
[2022-09-23] MEDS: ENOXAPARIN NA (PORCINE) 40 MG/0.4 ML DISP.SYRIN SQ SCH (09:55)
[2022-09-23] MEDS: predniSONE 20 MG TABLET (UD) PO SCH (09:55)
[2022-09-23] MEDS: LISINOPRIL 5 MG TABLET PO SCH (09:56)
[2022-09-23] MEDS: ASPIRIN COATED 81 MG TABLET.EC PO SCH (09:56)
[2022-09-23] MEDS: CEFTRIAXONE 1 GM in DEXTROSE 5%-WATER - 50 ML IVPB SCH (09:56)
[2022-09-23] MEDS: FUROSEMIDE 20 MG TABLET (FP) PO SCH (09:56)
[2022-09-23] MEDS: IRON POLYSACCHARIDES 150 MG CAPSULE PO SCH (09:56)
[2022-09-23] MEDS: DIVALPROEX SODIUM 500 MG TABLET E.C. PO SCH (09:56)
[2022-09-23] MEDS: FOLIC ACID 1 MG TABLET (FP) PO SCH (09:56)
[2022-09-23] MEDS: amLODIPine BESYLATE 10 MG TABLET (FP) PO SCH (09:56)
[2022-09-23] MEDS: BUDESONIDE/FORMETEROL FUMARATE 160/4.5 mcg INHALER IH SCH ×2 (11:28→22:42)
[2022-09-23] MEDS: ATORVASTATIN CA 20 MG TABLET (FP) PO SCH (22:31)
[2022-09-23] MEDS: GABAPENTIN 300 MG CAPSULE PO SCH (22:31)
[2022-09-23] MEDS: DIVALPROEX SODIUM 125 MG TABLET E.C. PO SCH (22:32)
[2022-09-23] MEDS: DIVALPROEX 250 MG, DIVALPROEX 500 MG PO SCH (22:32)
[2022-09-23] MEDS: HALOPERIDOL 5 MG TABLET PO SCH (22:32)
[2022-09-24] MEDS: INSULIN SLIDING SCALE (NOVOLOG) 1 VIAL SQ SCH ×4 (06:22→23:02)
[2022-09-24 07:13] LABS: BASO % 0.1 % (0-2.0); EOS % 0.1 % (0-4.5); HEMATOCRIT 33.3 % (35.4-49); HEMOGLOBIN 11.5 GM/dL (11.7-16.9); LYMPH % 13.2 % (8-40); MCHC 34.7 g/dl (32.0-35.9); MEAN CELL VOLUME 89.2 fl (80-96); MEAN PLT VOLUME 7.7 fl (7.5-11.1); MONO % 8.5 % (3.8-10.2); NEUT % 78.1 % (42.8-82.8); PLATELET COUNT 201 10^3/uL (134-434); RBC 3.73 M/mm3 (4.00-5.60); RDW 14.4 % (11.9-15.9); WHITE BLOOD COUNT 12.9 K/mm3 (4.0-10.0)
[2022-09-24 07:32] LABS: ALBUMIN 3.2 g/dl (3.4-5.0); BLOOD UREA NITROGEN 17.9 mg/dL (7-18); MAGNESIUM 2.2 mg/dL (1.8-2.4)
[2022-09-24 07:35] LABS: CREATININE 0.9 mg/dL (0.55-1.3); PHOSPHOROUS 2.7 mg/dL (2.5-4.9)
[2022-09-24] MEDS: ALBUTEROL SO4 2.5/IPRATROPIUM 0.5 INH SOL 3 ML VIAL.NEB. NEB SCH ×4 (07:35→20:10)
[2022-09-24 07:36] LABS: BILIRUBIN,TOTAL 0.5 mg/dL (0.2-1)
[2022-09-24 07:37] LABS: TOT PROT 6.3 g/dl (6.4-8.2)
[2022-09-24] MEDS: TAMSULOSIN HCL 0.4 MG CAP PO SCH ×2 (08:53→22:27)
[2022-09-24] MEDS ORDERED: LIDOCAINE HCL 2% JELLY (30 ML/TUBE) TP PRN (09:43)
[2022-09-24] MEDS: PANTOPRAZOLE 40 MG TABLET PO SCH (09:44)
[2022-09-24] MEDS: predniSONE 20 MG TABLET (UD) PO SCH (09:44)
[2022-09-24] MEDS: FOLIC ACID 1 MG TABLET (FP) PO SCH (09:44)
[2022-09-24] MEDS: IRON POLYSACCHARIDES 150 MG CAPSULE PO SCH (09:44)
[2022-09-24] MEDS: amLODIPine BESYLATE 10 MG TABLET (FP) PO SCH (09:44)
[2022-09-24] MEDS: CEFTRIAXONE 1 GM in DEXTROSE 5%-WATER - 50 ML IVPB SCH (09:44)
[2022-09-24] MEDS: LISINOPRIL 5 MG TABLET PO SCH (09:44)
[2022-09-24] MEDS: FUROSEMIDE 20 MG TABLET (FP) PO SCH (09:44)
[2022-09-24] MEDS: ASPIRIN COATED 81 MG TABLET.EC PO SCH (09:44)
[2022-09-24] MEDS: ENOXAPARIN NA (PORCINE) 40 MG/0.4 ML DISP.SYRIN SQ SCH (09:45)
[2022-09-24] MEDS: DIVALPROEX SODIUM 500 MG TABLET E.C. PO SCH (09:45)
[2022-09-24] MEDS: BUDESONIDE/FORMETEROL FUMARATE 160/4.5 mcg INHALER IH SCH ×2 (09:46→23:03)
[2022-09-24] MEDS ORDERED: LIDOCAINE HCL 5% TOP OINTMENT 50 GM TUBE TP ONE (11:02)
[2022-09-24] MEDS: PERPHENAZINE 4 MG TABLET PO SCH ×2 (11:03→22:50)
[2022-09-24] MEDS ORDERED: INSULIN (NOVOLOG) ASPART 100 UNITS/ML 10ML VIAL ONE (21:24)
[2022-09-24] MEDS: GABAPENTIN 300 MG CAPSULE PO SCH (22:26)
[2022-09-24] MEDS: ATORVASTATIN CA 20 MG TABLET (FP) PO SCH (22:27)
[2022-09-24] MEDS: HALOPERIDOL 5 MG TABLET PO SCH (22:48)
[2022-09-24] MEDS: DIVALPROEX SODIUM 125 MG TABLET E.C. PO SCH (22:48)
[2022-09-24] MEDS: DIVALPROEX 250 MG, DIVALPROEX 500 MG PO SCH (22:48)
[2022-09-25] MEDS: INSULIN SLIDING SCALE (NOVOLOG) 1 VIAL SQ SCH ×4 (06:45→21:37)
[2022-09-25] MEDS: ALBUTEROL SO4 2.5/IPRATROPIUM 0.5 INH SOL 3 ML VIAL.NEB. NEB SCH ×4 (07:38→20:24)
[2022-09-25] MEDS: PANTOPRAZOLE 40 MG TABLET PO SCH (09:35)
[2022-09-25] MEDS: ENOXAPARIN NA (PORCINE) 40 MG/0.4 ML DISP.SYRIN SQ SCH (09:35)
[2022-09-25] MEDS: PERPHENAZINE 4 MG TABLET PO SCH ×2 (09:35→21:11)
[2022-09-25] MEDS: ASPIRIN COATED 81 MG TABLET.EC PO SCH (09:35)
[2022-09-25] MEDS: IRON POLYSACCHARIDES 150 MG CAPSULE PO SCH (09:35)
[2022-09-25] MEDS: TAMSULOSIN HCL 0.4 MG CAP PO SCH ×2 (09:35→21:06)
[2022-09-25] MEDS: FOLIC ACID 1 MG TABLET (FP) PO SCH (09:35)
[2022-09-25] MEDS: predniSONE 20 MG TABLET (UD) PO SCH (09:35)
[2022-09-25] MEDS: amLODIPine BESYLATE 10 MG TABLET (FP) PO SCH (09:36)
[2022-09-25] MEDS: DIVALPROEX SODIUM 500 MG TABLET E.C. PO SCH (09:36)
[2022-09-25] MEDS: LISINOPRIL 5 MG TABLET PO SCH (09:36)
[2022-09-25] MEDS: FUROSEMIDE 20 MG TABLET (FP) PO SCH (09:36)
[2022-09-25] MEDS: BUDESONIDE/FORMETEROL FUMARATE 160/4.5 mcg INHALER IH SCH ×2 (09:37→21:07)
[2022-09-25] MEDS: CEFTRIAXONE 1 GM in DEXTROSE 5%-WATER - 50 ML IVPB SCH (10:11)
[2022-09-25] MEDS ORDERED: INSULIN (NOVOLOG) ASPART 100 UNITS/ML 10ML VIAL ONE ×2 (17:12→17:14)
[2022-09-25] MEDS: ATORVASTATIN CA 20 MG TABLET (FP) PO SCH (21:05)
[2022-09-25] MEDS: HALOPERIDOL 5 MG TABLET PO SCH (21:06)
[2022-09-25] MEDS: GABAPENTIN 300 MG CAPSULE PO SCH (21:06)
[2022-09-25] MEDS: DIVALPROEX 250 MG, DIVALPROEX 500 MG PO SCH (21:06)
[2022-09-25] MEDS: DIVALPROEX SODIUM 125 MG TABLET E.C. PO SCH (21:07)
[2022-09-26] MEDS: INSULIN SLIDING SCALE (NOVOLOG) 1 VIAL SQ SCH ×2 (06:32→11:17)
[2022-09-26] MEDS: ALBUTEROL SO4 2.5/IPRATROPIUM 0.5 INH SOL 3 ML VIAL.NEB. NEB SCH ×3 (07:18→15:17)
[2022-09-26 07:31] LABS: BASO % 0.1 % (0-2.0); EOS % 2.8 % (0-4.5); HEMATOCRIT 35.3 % (35.4-49); HEMOGLOBIN 12.3 GM/dL (11.7-16.9); LYMPH % 24.6 % (8-40); MCHC 34.9 g/dl (32.0-35.9); MEAN CELL VOLUME 88.8 fl (80-96); MEAN PLT VOLUME 7.7 fl (7.5-11.1); MONO % 10.9 % (3.8-10.2); NEUT % 61.6 % (42.8-82.8); PLATELET COUNT 217 10^3/uL (134-434); RBC 3.98 M/mm3 (4.00-5.60); RDW 14.1 % (11.9-15.9); WHITE BLOOD COUNT 8.1 K/mm3 (4.0-10.0)
[2022-09-26 07:41] LABS: POTASSIUM 3.8 mmol/L (3.5-5.1)
[2022-09-26 07:43] LABS: BLOOD UREA NITROGEN 16.8 mg/dL (7-18); CALCIUM 8.8 mg/dL (8.5-10.1)
[2022-09-26 07:44] LABS: MAGNESIUM 2.3 mg/dL (1.8-2.4)
[2022-09-26 07:46] LABS: PHOSPHOROUS 3.3 mg/dL (2.5-4.9)
[2022-09-26 07:47] LABS: CREATININE 0.9 mg/dL (0.55-1.3)
[2022-09-26] MEDS: TAMSULOSIN HCL 0.4 MG CAP PO SCH (08:52)
[2022-09-26] MEDS: CEFTRIAXONE 1 GM in DEXTROSE 5%-WATER - 50 ML IVPB SCH (09:26)
[2022-09-26] MEDS: PERPHENAZINE 4 MG TABLET PO SCH (09:27)
[2022-09-26] MEDS: FOLIC ACID 1 MG TABLET (FP) PO SCH (09:27)
[2022-09-26] MEDS: ENOXAPARIN NA (PORCINE) 40 MG/0.4 ML DISP.SYRIN SQ SCH (09:27)
[2022-09-26] MEDS: amLODIPine BESYLATE 10 MG TABLET (FP) PO SCH (09:28)
[2022-09-26] MEDS: ASPIRIN COATED 81 MG TABLET.EC PO SCH (09:28)
[2022-09-26] MEDS: DIVALPROEX SODIUM 500 MG TABLET E.C. PO SCH (09:28)
[2022-09-26] MEDS: IRON POLYSACCHARIDES 150 MG CAPSULE PO SCH (09:28)
[2022-09-26] MEDS: PANTOPRAZOLE 40 MG TABLET PO SCH (09:28)
[2022-09-26] MEDS: FUROSEMIDE 20 MG TABLET (FP) PO SCH (09:28)
[2022-09-26] MEDS: predniSONE 20 MG TABLET (UD) PO SCH (09:28)
[2022-09-26] MEDS: BUDESONIDE/FORMETEROL FUMARATE 160/4.5 mcg INHALER IH SCH (09:29)
[2022-09-26] MEDS: LISINOPRIL 5 MG TABLET PO SCH (09:29)
[2022-09-26] MEDS ORDERED: INSULIN (NOVOLOG) ASPART 100 UNITS/ML 10ML VIAL ONE ×3 (11:11→16:53)
[2022-09-26 13:53] VITALS: BP 131/66; PULSE 104; RESP 20; TEMP 97.5
== END 2022-09-26 16:40 | disposition home health service (06) | DRG 191 ==
LOC: JER 16:21 → JERBED 18:07 → J7W 21:13 → OBSVTOIN 09-23 16:19
PROVIDERS: ADMIT Internal Medicine; ATTEND Internal Medicine
DX: J44.1 Chronic obstructive pulmonary disease with (acute) exacerbation (principal); C34.90 Malignant neoplasm of unspecified part of unspecified bronchus or lung; E78.5 Hyperlipidemia, unspecified; I10 Essential (primary) hypertension; J44.9 Chronic obstructive pulmonary disease, unspecified; E11.9 Type 2 diabetes mellitus without complications; F03.90 Unspecified dementia, unspecified severity, without behavioral disturbance, psychotic disturbance, mood disturbance, and anxiety; R45.1 Restlessness and agitation; R59.1 Generalized enlarged lymph nodes; F20.9 Schizophrenia, unspecified; N40.1 Benign prostatic hyperplasia with lower urinary tract symptoms; R33.8 Other retention of urine; K80.20 Calculus of gallbladder without cholecystitis without obstruction; F39 Unspecified mood [affective] disorder; E66.9 Obesity, unspecified; Z68.31 Body mass index [BMI] 31.0-31.9, adult; Z99.81 Dependence on supplemental oxygen
CPT/HCPCS: 0241U-QW; 36415; 71045-TC-FY; 71275-TC; 76604-TC; 76641-TC-RT; 80048; 80053; 80164; 81003; 82803; 82962; 83735; 83880; 84100; 84484; 85025; 87040; 87070; 87077; 87086; 87205; 93005; 93010; 94010; 94640; 94761; 97116-GP; 97162-GP; 99285-25; G0378; J1100; Q9967